=== PATIENT | female | born 2000 | race Caucasian/White ===

== ENCOUNTER 2021-05-07 13:20 | Emergency (ER) | payer OTHER, SELFPAY ==
[2021-05-07 15:00] VITALS: BP 148/91; PULSE 87; RESP 18; TEMP 36.6; O2SAT 99; BMI 25.8
--- NOTE | 2021-05-07 15:34 | HMH.EDUTC ---
[facility] [place] Disposition Clinical Impression: Acute sinusitis Qualifiers: Sinusitis location: maxillary Recurrence: non-recurrent Qualified Code(s): J01.00 - Acute maxillary sinusitis, unspecified Disposition: Home, Self-Care Condition on Discharge: Good Instructions: DI for Sinusitis Additional Instructions: Start antibiotic patient to take as ordered for a full length of time even if you feel better. Sinus infections do not get better overnight. It may take 2-3 days to notice much improvement so be sure to use conservative measures as discussed for symptoms. Flonase 1 spray each nostril daily to help with nasal congestion, sinus and ear pressure/information Increase fluids Humidifier/vaporizer as needed Tylenol and ibuprofen as needed for fever or pain. If symptoms do not improve or get worse return or be seen in the ER Follow-up with primary care this week Prescriptions: Fluticasone Propionate [Flonase 50mcg nasal spray 16gm] 1 spr NS DAILY 7 Days #9.9 ml Transmission Status: Pending to [facility] predniSONE [Prednisone 20mg Tab] 20 mg PO BID #10 tab [facility]: [facility] Azithromycin [Zithromax 250mg tab] 250 mg PO DIRECTED #6 tab [facility]: [facility] Referrals: Provider,Referral, MD [Primary Care Provider] - Time of Disposition: 15:40 Medical Decision Making - James Inquiry Pt receiving controlled substance: No Vital Signs: 05/07/21 15:00 Temperature 97.8 F Temperature Source Oral Pulse Rate [Right Brachial] 87 Respiratory Rate 18 Blood Pressure [Right Arm] 148/91 H Blood Pressure Mean [Right Arm] 110 Blood Pressure Source [Right Arm] Automatic Cuff Blood Pressure Position [Right Arm] Sitting 02 Sat by Pulse Oximetry 99 Oxygen Delivery Method Room Air [facility] [place] HPI - General Chief complaint: Urgent [facility] Stated complaint: cough Time Seen by Provider: 05/07/21 15:34 Mode of Arrival: Ambulatory Source of Information: Patient Limitations: No Limitations Description of Symptoms (Recalled from Triage Doc. by RN): PATIENT C/O COUGH, SORE THROAT, AND COUGH WITH GREEN SPUTUM X 2 WEEKS HEENT Symptoms (Recalled from RN notes): Yes Resp Symptoms (Recalled from RN notes): Yes Skin Symptoms (Recalled from RN notes): No MS Symptoms (Recalled from RN notes): No Functional Status (Recalled from RN notes): WNL - History of Present Illness Provider Complaint: 21 yr old female presents for sore throat, coughing up green sputum,and tiredness for 2 weeks. - Related Data Previous Rx's Medication Instructions Recorded Azithromycin [Zithromax 250mg 250 mg PO DIRECTED #6 tab 05/07/21 tab] Fluticasone Propionate [Flonase 1 spr NS DAILY 7 Days #9.9 ml 05/07/21 50mcg nasal spray 16gm] predniSONE [Prednisone 20mg 20 mg PO BID #10 tab 05/07/21 Tab] Allergies Allergy/AdvReac Type Severity Reaction Status Date / Time No Known Allergies Allergy Verified 05/07/21 15:26 - Worker's Comp Is this a Worker's Comp case?: No [facility] History - Hepatitis A Screen Drug use history?: No High risk sexual behaviors?: No History of sexually transmitted infection?: No Currently employed?: No Childcare worker?: No Do you have indoor plumbing?: Yes Do you have electricity?: Yes Attestation statement:: This patient has been screened for Hepatitis A risk factors. I have reviewed the patient's past medical history: Yes ROS Obtained: Yes Systems reviewed as appropriate & no additional complaints - Constitutional Constitutional: Reports system reviewed and no additional complaints, except as docu, Reports body ache, Reports fatigue, Denies fever(s) - Eyes Eyes: Reports system reviewed and no additional complaints, except as docu - ENT Ears, Nose, Mouth, and Throat: Reports nasal congestion, Reports nasal discharge, Reports sore throat - Cardiovascular Cardiovascular: Reports system reviewed and no add
[2021-05-07 15:40] VITALS: BP 148/91; PULSE 87; RESP 18; TEMP 36.6; O2SAT 99
[2021-05-07 16:02] LABS: Apearance,Urine Clear (Clear); Bilirubin,Urine Negative (Negative); Blood, Urine Negative (Negative); Color,Urine Yellow (Yellow); Glucose,Urine (UA) Negative (Negative); Ketones,Urine Negative (Negative); PH,Urine 5.5 (5.0-8.5); Protein,Urine Negative (Negative); UTC Leukocyte Esterase,Urine Negative (Negative); UTC Nitrate,Urine Negative (Negative); Urobilinogen,Urine 0.2 EU/dl (0.2)
== END 2021-05-07 16:00 | disposition home or self-care (01) ==
PROVIDERS: Emergency Provider Nurse Practitioner Family
DX: J01.00 Acute maxillary sinusitis, unspecified (principal)
CPT/HCPCS: 81003; 99202; G0463

== ENCOUNTER 2021-08-05 16:18 | Emergency (ER) | payer OTHER, SELFPAY ==
[2021-08-05 16:51] VITALS: BP 134/68; PULSE 108; RESP 16; TEMP 37.2; O2SAT 98; BMI 32.2
[2021-08-05 17:03] LABS: UTC Influenza A Antigen Positive (Negative)
[2021-08-05 17:04] LABS: UTC Influenza B Antigen Negative (Negative)
--- NOTE | 2021-08-05 17:16 | HMH.EDUTC ---
[facility] [place] Clinical Impression: Influenza Disposition: Home, Self-Care Condition on Discharge: Good Instructions: Influenza, DI for Influenza -- Adult, Oseltamivir Additional Instructions: ? Start Tamiflu today if you are going to take it. Discussed risk and possible benefits. ? Lots of rest ? Increase Fluids water, Gatorade, powerade, pedialyte,if /toddler/child ? Alternate Tylenol and / or ibuprofen as discussed for fever, aches, chills Follow up IMMEDIATELY with your family doctor for new or worsening Symptoms OR no noticeable improvement over the next 48-72 hours, 911 for difficulty or breathing ? You or your child area contagious until no fever, aches, chills for 24 hours with medication for symptoms ? Help Prevent the spread of influenza: ? Wash your hands often. Use soap and water. Wash your hands after you use the bathroom, change a child's diapers, or sneeze. Wash your hands before you prepare or eat food. Use gel hand cleanser that has 60% alcohol, when soap and water are not available. Do not touch your eyes, nose, or mouth unless you have washed your hands first. ? Cover your mouth when you sneeze or cough. Cough into a tissue or the bend of your arm. If you use a tissue, throw it away immediately and wash your hands. ? Clean shared items with a germ-killing brick cleaner. Clean table surfaces, doorknobs, and light switches. Do not share towels, silverware, and dishes with people who are sick. Wash bed sheets, towels, silverware, and dishes with soap and water. ? Wear a mask over your mouth and nose if you are sick. The face mask may help protect others from becoming infected with the flu. Wear the mask when in common areas of your home or if you seek care with a healthcare provider. ? Stay away from others if you are sick. Stay at home until 24 hours after your fever and symptoms are gone. Prescriptions: Brompheniramine/Pseudoephed/Dm [Bromfed Dm Cough Syrup] 5 - 10 ml PO Q4-6H PRN #200 ml PRN Reason: Cough [facility]: [facility] Oseltamivir Phosphate [Tamiflu 75mg Capsule] 75 mg PO BID #10 cap Transmission Status: Pending to [facility] Referrals: Provider,Referral, [Primary Care Provider] - As needed Forms: Work/School Release Time of Disposition: 17:20 Medical Decision Making - James Inquiry Pt receiving controlled substance: No James was queried for this patient: No Vital Signs: 08/05/21 16:51 Temperature 98.9 F Temperature Source Oral Pulse Rate [Left] 108 H Respiratory Rate 16 Blood Pressure [Right Arm] 134/68 Blood Pressure Mean [Right Arm] 90 02 Sat by Pulse Oximetry 98 - Lab Data Lab results reviewed: Yes: I reviewed the patient's lab results. Lab Results 08/05/21 16:37: Influenza Type A Ag Positive A, Influenza Type B Ag Negative [facility] [place] - General Stated complaint: cough,CUELLO,bj,body aches Time Seen by Provider: 08/05/21 17:16 Mode of Arrival: Ambulatory Source of Information: Patient Limitations: No Limitations Description of Symptoms (Recalled from Triage Doc. by RN): pt c/o coughing up mucus, low grade fever, headache, body aches, and hol/cold flashes HEENT Symptoms (Recalled from RN notes): No Resp Symptoms (Recalled from RN notes): No Skin Symptoms (Recalled from RN notes): No MS Symptoms (Recalled from RN notes): No Functional Status (Recalled from RN notes): wnl - History of Present Illness Provider Complaint: Patient states that she has been sick for a few days States that she has been having nasal congestion cough, headache body aches and hurts when she coughs in her throat State that she was worried that she may have flu or something States that this morning she coughed up some clear mucous that drainage in her throat so she came in - Related Data Previous Rx's Medication Instructions Recorded Azithromycin [Zithromax 250mg 250 mg PO DIRECTED #6 tab 05/07/21 tab] Fluticasone Propionate [Flonase 1
[2021-08-05 17:22] VITALS: BP 134/68; PULSE 108; RESP 16; TEMP 37.2
== END 2021-08-05 17:27 | disposition home or self-care (01) ==
PROVIDERS: Emergency Provider Nurse Practitioner
DX: J10.1 Influenza due to other identified influenza virus with other respiratory manifestations (principal)
CPT/HCPCS: 87804; 99212; G0463

== ENCOUNTER 2022-04-08 18:32 | Emergency (ER) | payer OTHER, SELFPAY ==
--- NOTE | 2022-04-08 18:44 | XR_ITS ---
PROCEDURE INFORMATION: Exam: XR Right Ankle Exam date and time: 04/08/2022 6:41 PM Age: 22 years old Clinical indication: Injury or trauma; Fall; Blunt trauma; Ankle; Right; Additional info: Rolled ankle at work TECHNIQUE: Imaging protocol: Radiologic exam of the Right ankle. Views: 3 or more views. COMPARISON: No relevant prior studies available. FINDINGS: Bones/joints: Osseous alignment is normal. No acute fracture seen. No significant arthritic changes are noted. Soft tissues: Normal. IMPRESSION: Negative right ankle
[2022-04-08 19:00] VITALS: BP 135/76; PULSE 75; RESP 18; TEMP 36.8; O2SAT 98; BMI 21.3
--- NOTE | 2022-04-08 19:45 | EXP.UTC ---
Discharge Plan Disposition Patient Disposition: Home, Self-Care Condition: Good Referrals Follow up/Referrals: Provider,Referral, MD [Primary Care Provider] - See instructions Fely Zimmer DPM [Staff Physician] - See instructions Activity Restrictions/Add. Instructions Additional Instructions/Restrictions: Weightbearing as tolerated rest Ice with cold pack for 20 minutes remove may repeat for comfort every hour Mitchell wrap for support and swelling no less in the shower. Be sure not too tight but not to lose either Elevate with ankle above your heart as much as possible to help reduce swelling and therefore pain Ibuprofen every 6 hours as needed for pain or inflammation. If needs something more you can take Tylenol every 4 hours as needed as long as her primary care has told he was okayed for you to take both. If improving any do not need to follow-up you can bring begin exercising 2-3 weeks after injury. Follow-up immediately if new or worsening symptoms or no noticeable improvement over the next 3-5 days. call ortho Clinical Impressions Clinical Impression: Ankle sprain Stand Alone Forms Stand Alone Forms: Work/School Release Instructions Patient Instructions: DI for Ankle Sprain Discharge ED Provider: Danie ([facility] [place] General Stated complaint: WC 04/08@0830 RT ankle inj Mode of Arrival: Ambulatory Source of Information: Patient Limitations: No Limitations Time Seen by Provider: 04/08/22 19:45 Description of Symptoms (Recalled from Triage Doc. by RN): PATIENT STATES SHE STEPPED OFF OF A LADDER AT WORK TODAY AND ROLLED HER RIGHT ANKLE HEENT Symptoms (Recalled from RN notes): No Resp Symptoms (Recalled from RN notes): No Skin Symptoms (Recalled from RN notes): No MS Symptoms (Recalled from RN notes): Yes Functional Status (Recalled from RN notes): WNL History of Present Illness Provider Complaint: 22 yr old female presents for rt ankle pain. pt states she stepped off a ladder and felt ankle twist. now having swelling and pain Related Data Allergies Allergy/AdvReac Type Severity Reaction Status Date / Time No Known Allergies Allergy Verified 08/05/21 16:55 Worker's Comp Is this a Worker's Comp case?: No [facility] Disclaimer: The information contained in this section may have been updated after the patient was seen, as this information can be updated by other users. Medical History , [employer]) No significant past medical history Social History , [employer]) Smoking Status: Unknown if ever smoked alcohol intake: never current occupational status: employed Travel in the last 8 weeks: None ROS Obtained: Yes All systems reviewed & no additional complaints except as documented Constitutional Constitutional: Reports system reviewed and no additional complaints, except as documented Eyes Eyes: Reports system reviewed and no additional complaints, except as documented ENT Ears, Nose, Mouth, and Throat: Reports system reviewed and no additional complaints, except as documented Cardiovascular Cardiovascular: Reports system reviewed and no additional complaints, except as documented Respiratory Respiratory: Reports system reviewed and no additional complaints, except as documented Gastrointestinal Gastrointestingal: Reports system reviewed and no additional complaints, except as documented Musculoskeletal Musculoskeletal: Reports system reviewed and no additional complaints, except as documented, Reports as per HPI, Reports arthralgias, Reports joint swelling and Reports limited range of motion Endocrine Endocrine: Reports system reviewed and no additional complaints, except as documented Hematologic/Lymphatic Henatologic/Lymphatic: Reports system reviewed and no additional complaints, except as documented Allergic/Immunologic Allergic/Immunologic: Reports system reviewed and no additional complaints,
[2022-04-08 19:50] VITALS: BP 135/76; PULSE 75; RESP 18; TEMP 36.8; O2SAT 98
== END 2022-04-08 19:58 | disposition home or self-care (01) ==
PROVIDERS: Emergency Provider Nurse Practitioner Family
DX: S93.401A Sprain of unspecified ligament of right ankle, initial encounter (principal)
CPT/HCPCS: 73610; 99212; 99213; G0463

== ENCOUNTER 2022-09-28 20:05 | Emergency (ER) | payer OTHER, SELFPAY ==
[2022-09-28 20:14] VITALS: BP 148/88; PULSE 98; RESP 17; TEMP 36.5; O2SAT 99; BMI 30.2
--- NOTE | 2022-09-28 20:19 | PC.NURSE ---
Dr. Cid at
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
--- NOTE | 2022-09-28 20:21 | PC.NURSE ---
verbal orders received from
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
[2022-09-28 20:31] VITALS: BP 150/94; PULSE 89; O2SAT 99
[2022-09-28 20:46] LABS: Urine Pregnancy, HCG Qual. Negative (Negative)
[2022-09-28 21:00] VITALS: BP 142/93; PULSE 84; O2SAT 99
[2022-09-28 21:18] VITALS: BP 132/77; PULSE 66; RESP 15; TEMP 36.7
== END 2022-09-28 21:22 | disposition home or self-care (01) ==
PROVIDERS: Emergency Provider Emergency Medicine
DX: R51.9 Headache, unspecified (principal); S16.1XXA Strain of muscle, fascia and tendon at neck level, initial encounter; V47.5XXA Car driver injured in collision with fixed or stationary object in traffic accident, initial encounter
CPT/HCPCS: 70450; 72125; 81025; 99284; 99285

== ENCOUNTER 2024-01-01 11:57 | Emergency (ER) | payer OTHER, SELFPAY ==
[2024-01-01 12:30] VITALS: BP 122/72; PULSE 81; RESP 20; TEMP 37; O2SAT 98; BMI 32.1
--- NOTE | 2024-01-01 12:31 | ED_ITS ---
Discharge Plan Disposition Patient Disposition: Home, Self-Care Condition: Good Prescriptions Prescriptions: New azithromycin [Zithromax] 250 mg tablet 250 mg PO UD DOSE PK Qty: 6 0RF Rx Instructions: Take two (2) tablets today, then one (1) tablet days #2 thru #5 methylprednisolone 4 mg Tablets,Dose Pack 4 mg PO DIRECTED 6 Days Qty: 21 0RF Rx Instructions: Take 1 pack as directed for 6 days [id number]-nlcdrqfol-ZX [Bromfed DM] 2-30-10 mg/5 mL Syrup 5 ml PO Q6H PRN (Reason: Cough) Qty: 240 0RF No Action norethindrone ac-eth estradiol [Microgestin 04/21 ()] 1-20 mg-mcg tablet 1 tab PO DAILY Patient Comments: TAKE 1 TABLET BY MOUTH ONCE DAILY Referrals Follow up/Referrals: Waldemar Mckeon MD [Primary Care Provider] - See instructions Activity Restrictions/Add. Instructions Additional Instructions/Restrictions: Drink plenty of fluids. Take tylenol or ibuprofen for pain or fever. Take the medications as directed. Follow up with your regular doctor. GO TO THE ER FOR ANY WORSENING SYMPTOMS Clinical Impressions Clinical Impression: Pharyngitis, Acute viral syndrome Acute sinusitis Qualifiers: Sinusitis location: maxillary Recurrence: non-recurrent Qualified Code(s): J01.00 - Acute maxillary sinusitis, unspecified Stand Alone Forms Stand Alone Forms: Work/School Release Instructions Patient Instructions: Sinusitis, DI for Sinusitis Print Language Print Language: Vietnamese Discharge ED Provider: Clifford Angelo [facility] General Stated complaint: congestion sore throat cough Time Seen by Provider: 01/01/24 12:31 Related Data Home Medications ?Medication ?Instructions ?Recorded ?Confirmed norethindrone acetate 1 mg-ethinyl 1 tab PO DAILY 01/01/24 01/01/24 estradiol 20 mcg tablet (Microgestin) Previous Rx's ?Medication ?Instructions ?Recorded azithromycin 250 mg tablet 250 mg PO UD DOSE PK #6 tabs 01/01/24 (Zithromax) ozsyrjfnliijjwa-flbsycujdnxbxik-DU 5 ml PO Q6H PRN Cough #240 mL 01/01/24 2 mg-30 mg-10 mg/5 mL oral syrup (Bromfed DM) methylprednisolone 4 mg tablets in 4 mg PO DIRECTED 6 days #21 tabs 01/01/24 a dose pack Allergies Allergy/AdvReac Type Severity Reaction Status Date / Time No Known Allergies Allergy Verified 08/05/21 16:55 [facility] Disclaimer: The information contained in this section may have been updated after the patient was seen, as this information can be updated by other users. 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 Social History (Updated 04/08/22 @ 19:51 by Chi Helton ([facility]), SPECIALIST FIELD ENGINEER) Smoking Status: Unknown if ever smoked alcohol intake: never current occupational status: employed Travel in the last 8 weeks: None ROS Obtained: Yes All systems reviewed & no additional complaints except as documented Constitutional Constitutional: Reports chills and Reports fever(s) Eyes Eyes: Denies eye discharge ENT Ears, Nose, Mouth, and Throat: Reports as per HPI Cardiovascular Cardiovascular: Denies chest pain Respiratory Respiratory: Denies chest congestion and Reports cough Gastrointestinal Gastrointestingal: Reports nausea; Denies abdominal pain, constipation, cramping, diarrhea or vomiting Musculoskeletal Musculoskeletal: Denies arthralgias Integumentary/Breasts Skin/Breast: Denies rash Neurologic Neurologic: Denies paresthesias Physical Exam General General appearance: alert and in no apparent distress Head Head exam: atraumatic, normocephalic and normal inspection Eye Eye exam: Present normal appearance, PERRL and EOMI ENT ENT exam: Present mucous membranes moist and normal external ear exam Expanded ENT Exam TM/Canal exam: Bilateral TM: erythema and bulging Nose exam: Absent sinus tenderness Mouth exam: Present normal external inspection; Absent drooling Teeth exam: Present normal inspection Throat exam: Present tonsillar erythema, tonsillomegaly and tonsillar exudate Neck Neck exam: Present normal inspection, full ROM and trachea midline; Absent tenderness, meningismus or lymphadenopathy Chest Chest inspection: Present normal inspection and symmetric chest wall rise; Absent tenderness Respiratory Respiratory exam: Present normal lung sounds bilaterally; Absent respiratory distress, wheezes or stridor Cardiovascular Cardiovascular exam: Present regular rate and normal rhythm; Absent systolic murmur or diastolic murmur Abdominal Exam Abdominal exam: Present soft and normal bowel sounds; Absent distention, tenderness, guarding, rebound or rigidity Extremities Exam Extremities exam: Present normal inspection and normal capillary refill; Absent calf tenderness Back Exam Back exam: Present normal inspection and full ROM; Absent tenderness, CVA tenderness (R) or CVA tenderness (L) Neurological Exam Neurological exam: Present alert, oriented X3 and CN II-XII intact Psychiatric Psychiatric exam: Present normal affect and normal mood Skin Skin exam: Present warm, dry, intact and normal color Medical Decision Making Medical Records Medical records reviewed: No I reviewed the patient's medical records. Screening: Per USPSTF and CDC recommendations, given the prevalence of disease in our region, it is our hospital?s policy to screen for HIV and viral Hepatitis for all patients aged 18 and over and those with ongoing risk factors. James Inquiry Pt receiving controlled substance: No Lab Data Lab results reviewed: Yes I reviewed the patient's lab results.
[2024-01-01 12:48] LABS: UTC Strep Screen (Rapid) Negative (Negative)
[2024-01-01 13:23] VITALS: BP 122/72; PULSE 81; RESP 20; TEMP 37; O2SAT 98
== END 2024-01-01 13:38 | disposition home or self-care (01) ==
PROVIDERS: Emergency Provider Nurse Practitioner Family; PCP Family Medicine
DX: J01.00 Acute maxillary sinusitis, unspecified (principal)
CPT/HCPCS: 87635; 87880; 99212; G0381

== ENCOUNTER 2024-03-10 12:08 | Emergency (ER) | payer OTHER, SELFPAY ==
[2024-03-10 12:34] VITALS: BP 110/88; PULSE 76; RESP 20; TEMP 37.3; O2SAT 97; BMI 34.9
[2024-03-10 12:47] LABS: UTC Strep Screen (Rapid) Negative (Negative)
--- NOTE | 2024-03-10 13:00 | ED_ITS ---
Discharge Plan Disposition Patient Disposition: Home, Self-Care Condition: Good Prescriptions Prescriptions: New azithromycin [Zithromax Z-Eladio] 250 mg tablet See Rx Instructions .ROUTE .COMPLEX 5 Days Qty: 6 0RF Rx Instructions: For 250 mg dose pack: take 500 mg today (day 1), then 250 mg for 4 days (days 2-5) methylprednisolone [Medrol (Eladio)] 4 mg tablets,dose pack See Rx Instructions .Route .COMPLEX 6 Days Qty: 21 0RF Rx Instructions: taper pack; guaifenesin [Mucinex] 600 mg tablet extended release 12hr 600 mg PO BID PRN (Reason: cough) Qty: 20 0RF No Action norethindrone ac-eth estradiol [Microgestin 04/21 ()] 1-20 mg-mcg tablet 1 tab PO DAILY Patient Comments: TAKE 1 TABLET BY MOUTH ONCE DAILY Referrals Follow up/Referrals: Waldemar Mckeon MD [Primary Care Provider] - See instructions Activity Restrictions/Add. Instructions Additional Instructions/Restrictions: *Monitor Temp, Over the counter Motrin or Tylenol as directed/as needed Tylenol every 4 hours and Motrin every 6 hours (as long as your family doctor has told you that you can take it) for fever or pain. and straight to ER if unable to lower temp less than 101.0 after medication given *Warm salt water gargles may help to soothe the throat *Throat Lozenges? *Warm fluids like tea with honey may help to soothe the throat? *Sleep elevated *Humidifier/Vaporizer Your throat swab was sent for culture. Those results are typically sent to your primary care. Be sure to follow up in 2-3 days with your family doctor/primary care physician if no improvement so they can review those result and treat if necessary. If you don?t have a primary care doctor, I recommend you get one but in the mean time, you will have to return to a walk in clinic Follow up IMMEDIATELY for new or worsening symptoms or no Noticeable improvement over the next 48-72 hours. 911 for difficulty breathing or swallowing Clinical Impressions Clinical Impression: Acute sinusitis Instructions Patient Instructions: Sinusitis, Sinus Headache Print Language Print Language: Amharic Discharge ED Provider: Terri [place] [facility] [place] General Stated complaint: sore throat, cough Mode of Arrival: Ambulatory Source of Information: Patient Time Seen by Provider: 03/10/24 13:11 Description of Symptoms (Recalled from Triage Doc. by RN): SORE THROAT, COUGH, BRIGHT GREEN MUCUS HEENT Symptoms (Recalled from RN notes): Yes Resp Symptoms (Recalled from RN notes): Yes Skin Symptoms (Recalled from RN notes): No MS Symptoms (Recalled from RN notes): No Functional Status (Recalled from RN notes): WNL History of Present Illness Provider Complaint: Patient states that she has been having sore throat, thick yellowish green mucous in her nose, and cough States that today she wasnt feeling any better so she came in to get checked Related Data Home Medications ?Medication ?Instructions ?Recorded ?Confirmed norethindrone acetate 1 mg-ethinyl 1 tab PO DAILY 01/01/24 03/10/24 estradiol 20 mcg tablet (Microgestin) Previous Rx's ?Medication ?Instructions ?Recorded azithromycin 250 mg tablet See Rx Instructions PO .COMPLEX 5 03/10/24 (Zithromax Z-Eladoi) days #6 tabs guaifenesin 600 mg tablet, 600 mg PO BID PRN cough #20 tabs 03/10/24 extended release 12 hr (Mucinex) methylprednisolone 4 mg tablets in See Rx Instructions .Route 03/10/24 a dose pack (Medrol (Eladio)) .COMPLEX 6 days #21 tabs Allergies Allergy/AdvReac Type Severity Reaction Status Date / Time No Known Allergies Allergy Verified 08/05/21 16:55 Worker's Comp Is this a Worker's Comp case?: No [facility] Disclaimer: The information contained in this section may have been updated after the patient was seen, as this information can be updated by other users. 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), HARDWARE ENGINEER) Smoking Status: Unknown if ever smoked alcohol intake: never current occupational status: employed Travel in the last 8 weeks: None ROS Obtained: Yes All systems reviewed & no additional complaints except as documented and Yes Systems reviewed as appropriate & no additional complaints except as documented Constitutional Constitutional: Reports system reviewed and no additional complaints, except as documented and Reports as per HPI ENT Ears, Nose, Mouth, and Throat: Reports system reviewed and no additional complaints, except as documented, Reports as per HPI, Reports sinus pain, Reports sinus pressure and Reports sore throat Cardiovascular Cardiovascular: Reports system reviewed and no additional complaints, except as documented and Reports as per HPI Respiratory Respiratory: Reports system reviewed and no additional complaints, except as documented, Reports as per HPI and Reports cough Gastrointestinal Gastrointestingal: Reports system reviewed and no additional complaints, except as documented and as per HPI Physical Exam General General appearance: alert and in no apparent distress ENT ENT exam: Present mucous membranes moist Expanded ENT Exam Nose exam: Present sinus tenderness Throat exam: Present tonsillar erythema Respiratory Respiratory exam: Present normal lung sounds bilaterally; Absent respiratory distress or wheezes Cardiovascular Cardiovascular exam: Present regular rate, normal rhythm and normal heart sounds Abdominal Exam Abdominal exam: Present soft and normal bowel sounds; Absent distention or tenderness Neurological Exam Neurological exam: Present alert, oriented X3 and normal gait Medical Decision Making Medical Records Screening: Per USPSTF and CDC recommendations, given the prevalence of disease in our region, it is our hospital?s policy to screen for HIV and viral Hepatitis for all patients aged 18 and over and those with ongoing risk factors. James Inquiry Pt receiving controlled substance: No James was queried for this patient: No Vital Signs: 03/10/24 12:34 Temperature 99.1 F Temperature Source Oral Pulse Rate [Right Brachial] 76 Respiratory Rate 20 Blood Pressure [Left Arm] 110/88 Blood Pressure Mean [Left Arm] 95 02 Sat by Pulse Oximetry 97 Lab Data Lab results reviewed: Yes I reviewed the patient's lab results. Lab Results 03/10/24 12:39: Strep Scn Rapid Clinic Negative Orders (Tests/Meds): ORDERS Category Date Time Status Strep Screen Confirmation Stat Micro 03/10/24 12:39 Received
[2024-03-10 13:21] VITALS: BP 110/88; PULSE 76; RESP 20; TEMP 37.3
== END 2024-03-10 13:25 | disposition home or self-care (01) ==
PROVIDERS: Emergency Provider Nurse Practitioner; PCP Family Medicine
DX: J01.90 Acute sinusitis, unspecified (principal); R07.0 Pain in throat; R05.9 Cough, unspecified
CPT/HCPCS: 87880; 99212; G0381

== ENCOUNTER 2024-08-29 19:27 | Emergency (ER) | payer OTHER, SELFPAY ==
[2024-08-29 19:39] VITALS: BP 129/89; PULSE 95; RESP 16; TEMP 36.9; O2SAT 100; BMI 32.1
--- NOTE | 2024-08-29 19:46 | XR_ITS ---
PROCEDURE INFORMATION: Exam: XR Chest Exam date and time: 08/29/2024 8:12 PM Age: 24 years old Clinical indication: Other: Right sided rib pain, no trauma TECHNIQUE: Imaging protocol: Radiologic exam of the chest. Views: 1 view. COMPARISON: CT CERVICAL SPINE WO CON 28/09/2022 20:56 FINDINGS: Lungs: Unremarkable. No consolidation. Pleural spaces: Unremarkable. No pleural effusion. No pneumothorax. Heart/Mediastinum: Unremarkable. No cardiomegaly. Bones/joints: Unremarkable. IMPRESSION: No acute findings.
--- NOTE | 2024-08-29 19:48 | ED_ITS ---
<Statement entered by Shanel Monzon DO - 08/29/24 22:16> I was consulted by the ANGELIQUE, and we discussed the complexity of the problems being addressed. I approved the treatment and management plan for this patient's care in the emergency department, thus performing a substantive portion of the medical decision making. Shanel Monzon DO Discharge Plan Disposition Patient Disposition: Home, Self-Care Prescriptions Prescriptions: No Action norethindrone ac-eth estradiol [Microgestin 04/21 ()] 1-20 mg-mcg tablet 1 tab PO DAILY Patient Comments: TAKE 1 TABLET BY MOUTH ONCE DAILY azithromycin [Zithromax Z-Eladio] 250 mg tablet See Rx Instructions .ROUTE .COMPLEX 5 Days Qty: 6 0RF Rx Instructions: For 250 mg dose pack: take 500 mg today (day 1), then 250 mg for 4 days (days 2-5) methylprednisolone [Medrol (Eladio)] 4 mg tablets,dose pack See Rx Instructions .Route .COMPLEX 6 Days Qty: 21 0RF Rx Instructions: taper pack; guaifenesin [Mucinex] 600 mg tablet extended release 12hr 600 mg PO BID PRN (Reason: cough) Qty: 20 0RF Referrals Follow up/Referrals: Doretha Pillai APRN [Primary Care Provider, Medical] - See instructions Activity Restrictions/Add. Instructions Additional Instructions/Restrictions: You are seen emergency room today for a sore throat which is likely pharyngitis. You can try warm salt water gargles for pain relief. Return the emergency room if your symptoms worsen. Clinical Impressions Clinical Impression: Pharyngitis Print Language Print Language: Bulgarian Discharge ED Provider: Shanel Monzon General Adult HPI <Eva Howell APRN - Last Filed: 08/29/24 21:51> General Chief complaint: PAIN Stated complaint: sore trhoat, right side upper rib pain Time Seen by Provider: 08/29/24 19:35 History of Present Illness HPI narrative: Jaja Coates is a 24-year-old female who presents emergency room tonight with complaints of sore throat. Patient reports that she had a sore throat last night, woke up this morning and felt like her tonsils were touching each other . Has not had any drooling, able to control her secretions. Able to swallow just fine, has eaten food today. Also reports that she has been having this ongoing right sided rib pain on the right side of her chest. Started a little over a week ago. Reported as sharp and stabbing in nature when she moves around. At rest, the ribs do not hurt. Denies any cough, fever, chest pain, shortness of breath associated with it. No abdominal pain noted. No history of DVT or PE, no familial history of DVT or PE. Patient does not take any blood thinners. Denies any hemoptysis, no recent surgery or trauma, does take oral contraceptives. With this reason, patient cannot be perked out. Does endorse vape use. No other complaints at this time. Please note that the above description of symptoms, and this electronic medical record under categorization of recalled from ER triage doctor by RN are reflective of an initial nursing assessment, however, is not reflective of my full history and physical exam that was personally taken and clarified. Consequentially, this proceeding description of symptoms, which may include the patient's cauterized chief complaint in the EMR, do not reflect my personal clinical impression, and the ultimate description of the history of present illness stated complaints should be deferred to this section of this note. Unless stated otherwise were congruent with the section of the note, additional signs, symptoms, or incongruence can be interpreted as in or accurate with my clinical impression. Related Data Home Medications ?Medication ?Instructions ?Recorded ?Confirmed norethindrone acetate 1 mg-ethinyl 1 tab PO DAILY 0 04/2503/10/24 estradiol 20 mcg tablet (Microgestin) Previous Rx's ?Medication ?Instructions ?Recorded azithromycin 250 mg tablet See Rx Instructions PO .COM PLEX 5 03/10/24 (Zithromax Z-Eladio) days #6 tabs guaifenesin 600 mg tablet, 600 mg PO BID PRN cough #20 tabs 03/10/24 extended release 12 hr (Mucinex) methylprednisolone 4 mg tablets in See Rx Instructions .Route 03/10/24 a dose pack (Medrol (Eladio)) .COMPLEX 6 days #21 tabs Allergies Allergy/AdvReac Type Severity Reaction Status Date / Time No Known Allergies Allergy Verified 08/05/21 16:55 [facility] <Eva Howell, AEROSOL SUPERVISOR - Last Filed: 08/29/24 21:51> [facility] Disclaimer: The information contained in this section may have been updated after the patient was seen, as this information can be updated by other users. 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 Social History (Updated 04/08/22 @ 19:51 by Chi Helton ([facility]), AEROSOL SUPERVISOR) Smoking Status: Current every day smoker alcohol intake: never current occupational status: employed Travel in the last 8 weeks?: None Have you lived/traveled outside US in past 30 days?: No Contact w/someone who lives/traveled outside US past 30 days?: No Exposure to someone with infectious disease in past 14 days?: No Do you have a fever (greater than 100.4 F or 38 C)?: No Have you tested positive for COVID-19?: No Exposed to someone with COVID-19 in past 14 days?: No Do you have a sore throat?: Yes Do you have a cough?: No Do you have any weakness?: No Do you have any diarrhea?: No Are you experiencing any unusual bleeding?: No Do you have any muscle aches/pain?: Yes Do you have any abdominal pain?: No Are you experiencing loss of taste or smell?: No <Eva Howell APRN - Last Filed: 08/29/24 21:51> ROS Obtained: Yes Systems reviewed as appropriate & no additional complaints except as documented Physical Exam <Eva Howell APRN - Last Filed: 08/29/24 21:51> General General appearance: alert and in no apparent distress Head Head exam: atraumatic and normocephalic Eye Eye exam: Present PERRL and EOMI Chest Chest inspection: Present symmetric chest wall rise Respiratory Respiratory exam: Present normal lung sounds bilaterally Cardiovascular Cardiovascular exam: Present regular rate and normal rhythm Abdominal Exam Abdominal exam: Present soft and normal bowel sounds; Absent tenderness Extremities Exam Extremities exam: Present full ROM Neurological Exam Neurological exam: Present alert and oriented X3 Skin Skin exam: Present warm, dry and intact Medical Decision Making <Eva Howell APRN - Last Filed: 08/29/24 21:51> Medical Records Screening: Per USPSTF and CDC recommendations, given the prevalence of disease in our region, it is our hospital?s policy to screen for HIV and viral Hepatitis for all patients aged 18 and over and those with ongoing risk factors. James Inquiry Pt receiving controlled substance: No Vital Signs: 08/29/24 19:39 Temperature 98.5 F Temperature Source Oral Pulse Rate [Left] 95 H Respiratory Rate 16 Blood Pressure [Right Arm] 129/89 Blood Pressure Mean [Right Arm] 102 02 Sat by Pulse Oximetry 100 Oxygen Delivery Method Room Air Lab Data Lab Results 08/29/24 19:36: Group A Strep Rapid Negative 08/29/24 21:18: WBC 8.4, RBC 4.73, Hgb 14.8, Hct 42.4, MCV 89.6, MCH 31.3 H, MCHC 34.9, RDW 11.2 L, Plt Count 214, MPV 10.7 H, Neut % (Auto) 55.8, Lymph % (Auto) 29.3, [place] % (Auto) 12.4 H, Eos % (Auto) 1.3, Baso % (Auto) 1.0, Neut # (Auto) 4.7, Lymph # (Auto) 2.5, [place] # (Auto) 1.0, Eos # (Auto) 0.1, Baso # (Auto) 0.1, D-Dimer 0.53 H, Sodium 138, Potassium 4.0, Chloride 103, Carbon Dioxide 27, Anion Gap 12.0, BUN 11, Creatinine 0.70, Estimated Creat Clear 151, Estimated GFR 103, Est GFR ( Amer) 124, Glucose 83, Calcium 9.4, Total Bilirubin 0.6, AST 24, ALT 16, Alkaline Phosphatase 82, Total Protein 7.5, Albumin 4.5, Globulin 3.0, Albumin/Globulin Ratio 1.5 08/29/24 21:18 08/29/24 21:18 Orders (Tests/Meds): ORDERS Category Date Time Status CXR --portable [XR chest portable] Stat Exams 08/29/24 19:46 Completed CBC w/Auto Diff [Complete Blood Count Auto Diff] Stat Lab 08/29/24 21:18 Completed CMP [Comprehensive Metabolic Panel] Stat Lab 08/29/24 21:18 Completed D-Dimer Stat Lab 08/29/24 21:18 Completed Strep Scrn Group A (Rapid) Stat Lab 08/29/24 19:36 Completed Strep Screen Confirmation Stat Micro 08/29/24 19:36 Received Medical Decision Narrative: In summary patient is an 24-year-old female who presents emergency department for evaluation of sore throat and ongoing right rib pain. Patient reports her sore throat started last night, states it feels like her tonsils are touching each other. No issues with saliva control. No drooling. Rib pain is on the right side of her chest, underneath her right breast, nonradiating, worse with movement. Patient is hemodynamically stable upon arrival, afebrile. Nonfocal exam, oropharynx is without edema or erythema. Differential diagnosis includes strep throat, rib fracture, pneumonia. Initial workup will be conducted with hematology labs, chest x-ray, strep swab. Initial workup reviewed by [place] hematologic labs essentially unremarkable. D- dimer elevated at 0.56, however, according to the years criteria, she is negative for DVT/PE risk. Rapid strep was negative. Chest x-ray without any acute cardiopulmonary process. EKG without ST elevation. Upon repeat evaluation patient continues to complain of ongoing sore throat, no difficulty swallowing. Given this patient appropriate for discharge at this time. She will not be given any prescriptions. She was given return precautions. <Shanel Monzon, DO - Last Filed: 08/29/24 21:43> Vital Signs: 08/29/24 19:39 Temperature 98.5 F Temperature Source Oral Pulse Rate [Left] 95 H Respiratory Rate 16 Blood Pressure [Right Arm] 129/89 Blood Pressure Mean [Right Arm] 102 02 Sat by Pulse Oximetry 100 Oxygen Delivery Method Room Air Lab Data Lab Results 08/29/24 19:36: Group A Strep Rapid Negative 08/29/24 21:18: WBC 8.4, RBC 4.73, Hgb 14.8, Hct 42.4, MCV 89.6, MCH 31.3 H, MCHC 34.9, RDW 11.2 L, Plt Count 214, MPV 10.7 H, Neut % (Auto) 55.8, Lymph % (Auto) 29.3, [place] % (Auto) 12.4 H, Eos % (Auto) 1.3, Baso % (Auto) 1.0, Neut # (Auto) 4.7, Lymph # (Auto) 2.5, [place] # (Auto) 1.0, Eos # (Auto) 0.1, Baso # (Auto) 0.1, D-Dimer 0.53 H, Sodium 138, Potassium 4.0, Chloride 103, Carbon Dioxide 27, Anion Gap 12.0, BUN 11, Creatinine 0.70, Estimated Creat Clear 151, Estimated GFR 103, Est GFR ( Amer) 124, Glucose 83, Calcium 9.4, Total Bilirubin 0.6, AST 24, ALT 16, Alkaline Phosphatase 82, Total Protein 7.5, Albumin 4.5, Globulin 3.0, Albumin/Globulin Ratio 1.5 Orders (Tests/Meds): ORDERS Category Date Time Status CXR --portable [XR chest portable] Stat Exams 08/29/24 19:46 Completed CBC w/Auto Diff [Complete Blood Count Auto Diff] Stat Lab 08/29/24 21:18 Completed CMP [Comprehensive Metabolic Panel] Stat Lab 08/29/24 21:18 Completed D-Dimer Stat Lab 08/29/24 21:18 Completed Strep Scrn Group A (Rapid) Stat Lab 08/29/24 19:36 Completed Strep Screen Confirmation Stat Micro 08/29/24 19:36 Received ECG Data Tracing #1: I reviewed this ECG and interpreted as documented below: Normal sinus rhythm with a ventricular rate of [address] changes concerning for ischemia. Normal intervals ECG initial impression date: 08/29/24 ECG initial impression time: 21:38 Critical Care <Eva Howell APRN - Last Filed: 08/29/24 21:51> Critical Care Time Critical Care Time: No
[2024-08-29 19:59] LABS: Strep Scrn Group A (Rapid) Negative (Negative)
[2024-08-29 21:25] LABS: Basophils # 0.1 K/mm3 (0-0.2); Eosinophils # 0.1 Kmm3 (0.0-0.4); Eosinophils % 1.3 % (0.1-12.0); Hematocrit 42.4 % (37.0-47.0); Hemoglobin 14.8 g/dL (12.2-16.2); Immature Granulocytes # 0.02 10^3uL; Immature Granulocytes % 0.2 %; Lymphocytes # 2.5 K/mm3 (0.7-4.5); Lymphocytes % 29.3 % (10-50); Mean Corpuscular HGB Conc 34.9 g/dL (31.8-35.4); Mean Corpuscular Hemoglobin 31.3 pg (27.0-31.2); Mean Corpuscular Volume 89.6 fl (81-99); Mean Platelet Volume 10.7 fl (7.4-10.4); Monocytes % 12.4 % (1.7-9.3); Neutrophils # 4.7 K/mm3 (1.8-7.8); Neutrophils % 55.8 % (37.0-80.0); Nucleated Red Blood Cells # 0 10^3/uL; Nucleated Red Blood Cells % 0 %; Platelet Count 214 K/mm3 (142-424); Red Blood Count 4.73 M/mm3 (4.20-5.40); Red Cell Distribution Width 11.2 % (11.5-17.5); Red Cell Distribution Width-SD 36.5 fL; White Blood Count 8.4 K/mm3 (4.8-10.8)
[2024-08-29 21:35] LABS: Alanine Aminotransferase 16 U/L (12-78); Albumin Level 4.5 g/dl (3.5-5.0); Albumin/Globulin Ratio 1.5 (1.1-1.8); Alkaline Phosphatase 82 U/L (38-126); Aspartate Amino Transferase 24 U/L (14-36); Bilirubin,Total 0.6 mg/dl (0.2-1.3); Blood Urea Nitrogen 11 mg/dl (7-17); Calcium 9.4 mg/dl (8.4-10.2); Carbon Dioxide 27 mmol/L (22.0-30.0); Chloride 103 mmol/L (98-107); Creatinine Clearance Estimated 151 mL/min (50-200); Estimated Glomerular Filt Rate 103 ml/min (>60); GFR (African American) 124 ML/MIN (>60); Glucose 83 mg/dl (74-100); Sodium 138 mmol/L (136-145); Total Protein,Serum 7.5 g/dl (6.3-8.2)
--- NOTE | 2024-08-29 21:35 | ECG_ITS ---
APPROVED REPORT Exam: Resting ECG HR:86 bpm ECG Measurements Heart Rate 86 AXES [place] 156 P 54 QRSd 85 QRS 86 QT 328 T 63 QTc 371 Conclusion SINUS RHYTHM NORMAL ECG No STEMI Electronically signed by : JEAN MARIE MEDINA, 08/30/2024 00:25:32
[2024-08-29 21:40] LABS: D-Dimer 0.53 ug/mL (0.0-0.5)
[2024-08-29 21:49] VITALS: BP 113/77; PULSE 86; RESP 14; TEMP 37.2; O2SAT 100
== END 2024-08-29 21:53 | disposition home or self-care (01) ==
PROVIDERS: Nurse Practitioner Acute Care; Emergency Provider Emergency Medicine; PCP Nurse Practitioner Family
DX: R07.81 Pleurodynia (principal); J02.9 Acute pharyngitis, unspecified; F17.210 Nicotine dependence, cigarettes, uncomplicated
CPT/HCPCS: 71045; 80053; 85025; 85378; 87430; 93005; 99284